=== PATIENT | female | born 1990 | race African-American/Black ===

== ENCOUNTER → 2019-06-13 | Outpatient (CLI) | payer BC ==
--- NOTE | 2019-06-13 15:04 | RAD ---
EXAM: 1. KNEE STANDING BILAT AP, 2. KNEE BILAT 2V. HISTORY: Bilateral knee pain. COMPARISON: None. FINDINGS: No fractures are identified bilaterally. The joint spaces and alignment of both knees are maintained. There is no joint effusion. IMPRESSION: 1. No fracture or clear degenerative change. Electronically signed by: Sandra Roach MD (06/13/2019 3:01 PM) [facility]
--- NOTE | 2019-06-13 15:04 | RAD ---
EXAM: 1. KNEE STANDING BILAT AP, 2. KNEE BILAT 2V. HISTORY: Bilateral knee pain. COMPARISON: None. FINDINGS: No fractures are identified bilaterally. The joint spaces and alignment of both knees are maintained. There is no joint effusion. IMPRESSION: 1. No fracture or clear degenerative change. Electronically signed by: Sandra Roach MD (06/13/2019 3:01 PM) [facility]
--- NOTE | 2019-06-13 15:21 | RAD ---
EXAM: HAND BILAT 3V. HISTORY: Bilateral hand pain. COMPARISON: None. FINDINGS: No fractures are identified. There are no erosions or joint space narrowing. There is no periarticular osteopenia. Alignment is maintained. IMPRESSION: 1. No erosions or clear degenerative change by radiographs. Electronically signed by: Sandra Roach MD (06/13/2019 3:18 PM) [facility]
== END | disposition home or self-care (01) ==
LOC: DXRAD 14:33
PROVIDERS: ATTEND Orthopaedic Surgery Sports Medicine
DX: M25.562 Pain in left knee (principal); M25.561 Pain in right knee
CPT/HCPCS: 73130; 73560; 73565

== ENCOUNTER → 2020-01-27 | Outpatient (CLI) | payer BC ==
--- NOTE | 2020-01-27 15:01 | RAD ---
EXAM: Left wrist, 2 views. HISTORY: Pain. COMPARISON: None. FINDINGS: 2 views of the left wrist are obtained. There is no fracture, dislocation or subluxation. There is a suspected cyst within the triquetrum. IMPRESSION: No acute osseous finding. Electronically signed by: Ceci Tian MD (01/27/2020 2:58 PM) [id number]
== END ==
LOC: RAD 14:22
PROVIDERS: ATTEND Physician Assistant
DX: M25.532 Pain in left wrist (principal)
CPT/HCPCS: 73100